=== PATIENT | female | born 1980 | race Caucasian/White ===

== ENCOUNTER 2023-08-06 12:30 | Emergency (ER) | payer OTHER ==
[~2023-08-06] VITALS: Ht 154.9 cm; Wt 76.4 kg
[~2023-08-06 12:30] MED LIST: DIVA500T1 PO
[2023-08-06 12:56] VITALS: BP 152/93; PULSE 85; RESP 19; TEMP 98.1; O2SAT 100
[2023-08-06] MEDS ORDERED: LORazepam 2 MG/ML VIAL IM ONE (13:20)
[2023-08-06 13:59] VITALS: BP 123/70; PULSE 74; RESP 17; O2SAT 98
== END 2023-08-06 13:59 | disposition home or self-care (01) ==
LOC: MED 12:30
DX: F41.0 Panic disorder [episodic paroxysmal anxiety] (principal); F31.9 Bipolar disorder, unspecified; E11.9 Type 2 diabetes mellitus without complications; Z79.899 Other long term (current) drug therapy
CPT/HCPCS: 96372; 99283; J2060

== ENCOUNTER 2023-08-10 20:25 | Emergency (ER) | payer OTHER ==
[~2023-08-10] VITALS: Ht 157.5 cm; Wt 7.7 kg
[2023-08-10 20:51] VITALS: BP 138/70; PULSE 95; RESP 18; RESP 20; TEMP 97.1; O2SAT 99
== END 2023-08-10 22:45 | disposition left against medical advice (07) ==
LOC: MED 20:25
DX: F41.9 Anxiety disorder, unspecified (principal); Z53.21 Procedure and treatment not carried out due to patient leaving prior to being seen by health care provider
CPT/HCPCS: 99281